=== PATIENT | female | born 1990 | race Caucasian/White ===

== ENCOUNTER → 2021-11-11 | Outpatient (CLI) | payer BC ==
--- NOTE | 2021-11-11 09:57 | US ---
EXAMINATION TYPE: US liver DATE OF EXAM: 11/11/2021 COMPARISON: NONE CLINICAL HISTORY: 31-year-old female R74.01 Elevation liver transaminase levels. Elevated liver enzym es TECHNIQUE: Multiple sonographic images of the right upper quadrant are obtained. FINDINGS: EXAM MEASUREMENTS: Liver Length: 12.9 cm Gallbladder Wall: 0.3 cm CBD: 0.3 cm Right Kidney: 10.8 x 4.2 x 4.1 cm Pancreas: No gross abnormality. Liver: Homogeneous appearance without focal lesion. Gallbladder: Nonshadowing echogenic nodule measuring 3 mm along the posterior wall, possible tiny st one versus gallbladder wall polyp. Reassess in 6 months. No abnormal distention, wall thickening, or pericholecystic fluid. Evidence for sonographic Costa's sign: no CBD: wnl Right Kidney: no evidence of hydronephrosis IMPRESSION: 1. Normal homogeneous ultrasound appearance to the liver. 2. Either a small 3 mm nonshadowing gallstone versus a gallbladder wall polyp. [facility]up [facility] to reassess. 3. No biliary ductal dilatation.
== END | disposition home or self-care (01) ==
LOC: RADUSWWP 07:40
PROVIDERS: ATTEND Internal Medicine
DX: R74.01 Elevation of levels of liver transaminase levels (principal)
CPT/HCPCS: 76705

== ENCOUNTER → 2021-11-18 | Outpatient (CLI) | payer BC ==
--- NOTE | 2021-11-18 11:00 | USB ---
Reason for exam: clinical finding. Indicated problem(s): lump or thickening in the left breast. Physical Findings: Nurse did not find any significant physical abnormalities on exam. US Breast LT Left complete breast ultrasound includes all four quadrants, the retroareolar region and axilla. Finding demonstrates a 0.2 x 0.2 x 0.1cm benign lesion too small to characterize at 4 o'clock and a 1.0 x 0.2 x 1.2cm midline sternum oval, hypoechoic area immediately deep to the skin at 10 o'clock, probable collapsed sebaceous cyst, dermatologic evaluation recommended. These results were verbally communicated with the patient and result sheet given to the patient on 11/18/21. ASSESSMENT: Benign, BI-RAD 2 RECOMMENDATION: Routine screening mammogram of both breasts at age 40. (unless clinical indication to start sooner) Manage patient on a clinical basis. Dermatologic consult.
== END | disposition home or self-care (01) ==
LOC: RADUSWWP 08:13
PROVIDERS: ATTEND Internal Medicine
DX: N63.22 Unspecified lump in the left breast, upper inner quadrant (principal)

== ENCOUNTER 2023-11-30 11:12 | Inpatient (IN) | payer BC ==
[2023-11-30 12:02] LABS: Appearance,Urine Clear (Clear); Bilirubin,Urine Negative (Negative); Blood,Urine Negative (Negative); Color,Urine Colorless; Glucose,Urine (UA) Negative (Negative); Ketones,Urine Negative (Negative); Leukocyte Esterase,Urine Negative (Negative); Nitrite,Urine Negative (Negative); PH, Urine 6.5 (5.0-8.0); Protein,Urine Negative (Negative); Specific Gravity,Urine 1.001 (1.001-1.035); Urobilinogen,Urine <2.0 mg/dL (<2.0)
[2023-11-30 12:12] LABS: Creatinine,Urine Random 5.9 mg/dL; Protein/Creatinine Ratio,Urine 2.203
[2023-11-30] MEDS ORDERED: LABETALOL 100 MG TAB PO STA (12:47)
[2023-11-30] MEDS ORDERED: LABETALOL 200 MG TAB PO PRN (13:05)
[2023-11-30] MEDS ORDERED: ACETAMINOPHEN TAB 500 MG TAB PO PRN (13:06)
[2023-11-30 14:44] LABS: Basophils % (A) 0 %; Eosinophils % (A) 0 %; HCT 38.5 % (34.0-46.0); Lymphocytes # (A) 1.5 k/uL (1.0-4.8); Lymphocytes % (A) 15 %; MCH 31.3 pg (25.0-35.0); MCHC 33.7 g/dL (31.0-37.0); MCV 93.1 fL (80.0-100.0); Monocytes # (A) 0.3 k/uL (0-1.0); Monocytes % (A) 3 %; Neutrophils # (A) 8.4 k/uL (1.3-7.7); Neutrophils % (A) 81 %; Platelet Count 230 k/uL (150-450); RBC 4.13 m/uL (3.80-5.40); RDW 13.7 % (11.5-15.5); WBC 10.3 k/uL (3.8-10.6)
[2023-11-30 14:52] LABS: ALT 14 U/L (4-34); AST 18 U/L (14-36); African American GFR (CKD) >90 (>60 ml/min/1.73 sqM); Blood Urea Nitrogen 8 mg/dL (7-17); LDH 166 U/L (120-246); Non-African American GFR(CKD) >90 (>60 ml/min/1.73 sqM); Uric Acid 3.9 mg/dL (3.7-7.4)
[2023-11-30 19:33] LABS: Glucose,Whole Blood 90 mg/dL (70-110)
[2023-11-30] MEDS: LABETALOL 200 MG TAB PO SCH (19:45)
[2023-12-01] MEDS ORDERED: LABETALOL 100 MG TAB PO PRN (04:21)
[2023-12-01 05:48] LABS: Glucose,Whole Blood 88 mg/dL (70-110)
[2023-12-01 08:05] LABS: Basophils % (A) 0 %; Eosinophils # (A) 0.1 k/uL (0-0.7); Eosinophils % (A) 1 %; HCT 37.9 % (34.0-46.0); HGB 12.5 gm/dL (11.4-16.0); Lymphocytes # (A) 1.4 k/uL (1.0-4.8); Lymphocytes % (A) 15 %; MCH 30.8 pg (25.0-35.0); MCV 93.2 fL (80.0-100.0); Mean Platelet Volume 8.1; Monocytes # (A) 0.4 k/uL (0-1.0); Monocytes % (A) 5 %; Neutrophils # (A) 6.8 k/uL (1.3-7.7); Neutrophils % (A) 77 %; Platelet Count 197 k/uL (150-450); RBC 4.07 m/uL (3.80-5.40); WBC 8.7 k/uL (3.8-10.6)
[2023-12-01 08:18] LABS: ALT 12 U/L (4-34); AST 18 U/L (14-36); African American GFR (CKD) >90 (>60 ml/min/1.73 sqM); Blood Urea Nitrogen 11 mg/dL (7-17); LDH 147 U/L (120-246); Non-African American GFR(CKD) >90 (>60 ml/min/1.73 sqM); Uric Acid 4.7 mg/dL (3.7-7.4)
[2023-12-01] MEDS: LABETALOL 200 MG TAB PO SCH ×2 (08:26→19:43)
--- NOTE | 2023-12-01 09:23 | P.HPOB ---
History of Present Illness H&P Date: 11/30/23 Chief Complaint: IUP at 35 weeks, chronic hypertension 33-year-old G2, P1 at 35 weeks that was seen in the office today for routine visit with noted elevated blood pressures. Repeat blood pressure remained elevated therefore patient was sent to OB triage for preeclampsia workup. Blood pressures were improved and preeclampsia labs were negative. Protein creatinine ratio was elevated at 2.1. Patient denies any signs or symptoms of preeclampsia. Patient noted good movement denied contractions. Patient is OBV to repeat preeclampsia labs and 24-hour urine to correlate with protein creatinine ratio given no signs or symptoms of preeclampsia at 35 weeks. In addition patient does have a history of gestational diabetes, diet controlled (GDS >200) On blood work this patient is a blood type of O+, rubella status immune, hepatitis B surface antigen negative, RPR is nonreactive, HIV is negative, she did receive her Tdap on 10/25 Review of Systems Constitutional: Denies chills, Denies fatigue, Denies fever Ears, nose, mouth and throat: Denies headache Cardiovascular: Reports leg edema Respiratory: Denies dyspnea Gastrointestinal: Denies constipation, Denies diarrhea, Denies nausea, Denies vomiting Genitourinary: Reports Past Medical History Past Medical History: No Reported History History of Any Multi-Drug Resistant Organisms: None Reported Past Surgical History: No Surgical Hx Reported Past Anesthesia/Blood Transfusion Reactions: No Reported Reaction Past Psychological History: No Psychological Hx Reported Smoking Status: Never smoker Past Alcohol Use History: None Reported Past Drug Use History: None Reported - Past Family History Father Family Medical History: No Reported History Medications and Allergies Home Medications Medication Instructions Recorded Confirmed Type Aspirin 81 mg PO DAILY 12/28/22 11/30/23 History Labetalol [Trandate] 100 mg PO BID 12/28/22 11/30/23 History Vit No.179/Iron/Folic 1 tab PO DAILY 12/28/22 11/30/23 History [ Tablet] Allergies Allergy/AdvReac Type Severity Reaction Status Date / Time amoxicillin Allergy Rash/Hives Verified 11/30/23 11:41 Exam Osteopathic Statement: *. No significant issues noted on an osteopathic structural exam other than those noted in the History and Physical/Consult. Vital Signs Temp Pulse Resp BP Pulse Ox 11/30/23 19:52 97.7 F 101 H 16 163/78 98 11/30/23 16:00 98.1 F 83 18 136/65 98 11/30/23 11:40 97.5 F L 80 18 145/96 96 Intake and Output 11/30/23 11/30/23 11/30/23 06:59 14:59 22:59 Other: # Voids 2 Weight 113.398 kg Targeted physical exam is performed in the state in general is a well-nourished well-developed female in no acute distress, breathing is nonlabored, heart has a regular rate and rhythm, abdomen is gravid, cervical exam is deferred, heart tones are noted to be category 1 and she is not manuel Results Result Diagrams: 11/30/23 14:21 11/30/23 14:21 Abnormal Lab Results - Last 24 Hours (Table) 11/30/23 Range/Units 14:21 Neutrophils # 8.4 H (1.3-7.7) k/uL Assessment and Plan (1) 35 weeks gestation of Current Visit: Yes Status: Acute Code(s): Z3A.35 - 35 WEEKS GESTATION OF SNOMED Code(s): 90020888 (2) Essential hypertension Current Visit: Yes Status: Acute Code(s): I10 - ESSENTIAL (PRIMARY) HYPERTENSION SNOMED Code(s): 36822862 (3) GDM (gestational diabetes mellitus), class A1 Current Visit: No Status: Acute Code(s): O24.410 - GESTATIONAL DIABETES MELLITUS IN , DIET CONTROLLED SNOMED Code(s): 30471929 Plan: 33-year-old at 35 weeks of that presents with elevated blood pressure and elevated P/Cr ratio. Patient is observed overnight for serial blood pressures and 24-hour urine collection. Repeat preeclampsia will be done in addition given early gestational age at 35 weeks want correlation between PCR ratio and 24-hour urine before we proceed with delivery. Plan of care is discussed with patient and she states understanding, all questions are answered. (Patient does have a significant history of anxiety and whitecoat hypertension)
--- NOTE | 2023-12-01 09:30 | P.PN ---
Progress Note - Text Progress Note Date: 12/01/23 33-year-old G2, P1 at 35-1/7 weeks admitted yesterday afternoon for observation of blood pressures and 24-hour urine collection. Patient has a known history of chronic hypertension and gestational diabetes. Patient notes normal blood pressures at home but does on occasion have an elevated pressure in the office that returns to normal on recheck. Patient did well overnight she did receive her home meds and an additional 100 mg dose of oral labetalol around 4 AM for an elevated blood pressure. Patient denies any signs or symptoms of preeclampsia. Repeat pre eclampsia labs this morning were normal. We are awaiting 24-hour urine collection to be completed around 1130 this morning. NST category 1 this morning. VS 146/83 prior to am labetalol gen: No acute distress, resting comfortably in bed chest: Breathing is nonlabored Abdomen: Gravid ext: Trace lower extremity swelling is appreciated Assessment/Plan IUP at 35 and 1/7 weeks, chronic hypertension ( on labetalol ) rule out preeclampsia awaiting 24-hour urine collection to correlate with PC ratio Will discuss plan of care going forward pending 24-hour urine collection. Patient is counseled if 24-hour urine collection is elevated will plan on induction of labor secondary to preeclampsia. Initial 24-hour urine collection is reviewed upon beginning care, 158
[2023-12-01 10:15] LABS: Glucose,Whole Blood 95 mg/dL (70-110)
[2023-12-01 11:44] LABS: Total Volume 24 Hour,Urine 2425 mls (800-1800)
[2023-12-01 12:07] LABS: Total Protein 24 Hour,Urine 146 mg/24hr (42.0-225.0)
[2023-12-01] MEDS ORDERED: miSOPROStoL 200 MCG TAB PO PRN (12:24)
[2023-12-01] MEDS ORDERED: CARBOPROST TROMETHAMINE 250 MCG/ML 1 ML AMP IM PRN (12:24)
[2023-12-01] MEDS ORDERED: LIDOCAINE 0.5% (PF) 5 MG/ML (50 ML SDV) SQ PRN (12:24)
[2023-12-01] MEDS ORDERED: OXYTOCIN 10 UNIT/ML 1 ML VIAL IM PRN (12:24)
[2023-12-01] MEDS ORDERED: TRANEXAMIC 1,000 MG/100ML-NACL 1,000 MG in EMPTY BAG 1 BAG IV PRN (12:24)
[2023-12-01] MEDS ORDERED: METHYLERGONOVINE 0.2 MG/ML 1 ML AMP IM PRN (12:24)
[2023-12-01] MEDS ORDERED: TERBUTALINE 1 MG/ML VIAL SQ PRN (12:24)
[2023-12-01] MEDS: LACTATED RINGERS 1,000 ML IV SCH ×2 (13:13→21:03)
[2023-12-01] MEDS: OXYTOCIN 30 UNITS/500 ML NS 30 UNIT in SALINE 1 500ML.BAG IV SCH (13:13)
[2023-12-01] MEDS ORDERED: DINOPROSTONE 10 MG INSERT.ER VAGINAL ONE (13:26)
[2023-12-01 13:43] LABS: Basophils % (A) 0 %; Eosinophils # (A) 0.1 k/uL (0-0.7); Eosinophils % (A) 1 %; HGB 12.8 gm/dL (11.4-16.0); Lymphocytes # (A) 1.4 k/uL (1.0-4.8); Lymphocytes % (A) 15 %; MCH 32.1 pg (25.0-35.0); MCHC 34.6 g/dL (31.0-37.0); MCV 92.6 fL (80.0-100.0); Mean Platelet Volume 7.9; Monocytes # (A) 0.4 k/uL (0-1.0); Monocytes % (A) 4 %; Neutrophils # (A) 7.5 k/uL (1.3-7.7); Neutrophils % (A) 80 %; Platelet Count 247 k/uL (150-450); RBC 3.99 m/uL (3.80-5.40); RDW 13.8 % (11.5-15.5); WBC 9.4 k/uL (3.8-10.6)
[2023-12-01 13:52] LABS: INR 0.8 (<1.2); Partial Thromboplastin Time 23.5 sec (22.0-30.0); Prothrombin Time 9.5 sec (10.0-12.5)
[2023-12-02] MEDS: LACTATED RINGERS 1,000 ML IV SCH (03:09)
[2023-12-02] MEDS: OXYTOCIN 30 UNITS/500 ML NS 30 UNIT in SALINE 1 500ML.BAG IV SCH (03:20)
[2023-12-02] MEDS: LABETALOL 200 MG TAB PO SCH ×2 (07:55→20:39)
[2023-12-02] MEDS ORDERED: fentaNYL (PF) 50 MCG/ML 5 ML AMP ONE (09:58)
[2023-12-02] MEDS ORDERED: ROPIVACAINE 5 MG/ML 30 ML VIAL ONE (09:58)
[2023-12-02] MEDS ORDERED: SODIUM CHLORIDE 0.9% 250 ML BAG ONE (09:58)
[2023-12-02] MEDS ORDERED: SIMETHICONE 80 MG CHEWABLE PO PRN (11:39)
[2023-12-02] MEDS ORDERED: HYDROCORTISONE 2.5% RECTAL CREAM 30 GM TUBE RECTAL PRN (11:39)
[2023-12-02] MEDS ORDERED: ACETAMINOPHEN TAB 325 MG TAB PO PRN (11:39)
[2023-12-02] MEDS ORDERED: diphenhydrAMINE 50 MG CAP PO PRN (11:39)
[2023-12-02] MEDS ORDERED: ZOLPIDEM 5 MG TAB PO PRN (11:39)
[2023-12-02] MEDS ORDERED: diphenhydrAMINE 50 MG/ML 1 ML VIAL IVP PRN ×2 (11:39)
[2023-12-02] MEDS ORDERED: diphenhydrAMINE 25 MG CAP PO PRN (11:39)
[2023-12-02] MEDS ORDERED: LANOLIN CREAM 5 GM TUBE TOPICAL PRN (11:39)
[2023-12-02] MEDS ORDERED: BENZOCAINE/MENTHOL SPRAY 1 GM/SPRAY AEROSOL TOPICAL PRN (11:39)
[2023-12-02] MEDS ORDERED: OXYTOCIN 30 UNITS/500 ML NS 30 UNIT in SALINE 1 500ML.BAG IV SCH (11:45)
[2023-12-02] MEDS ORDERED: CALCIUM GLUCONATE 1 GM/10 ML VIAL IV PRN (11:50)
--- NOTE | 2023-12-02 11:50 | P.PROBDLV ---
Vaginal Delivery Note - . Vaginal Delivery Note: 33-year-old G2, P1 that presented to the office for routine visit on 11/30 with elevated blood pressures. Initial blood pressure in the office 150/80 follow-up blood pressure 160/90. Patient was counseled to present to OB triage for labs and serial blood pressures. Blood pressures remained elevated with normal preeclampsia labs, protein creatinine ratio of the urine revealed an elevated result of 2.1. Patient was admitted overnight for observation and 24- hour urine collection to correlate with PC ratio. 24-hour urine did come back with 2 g of protein in the urine specimen. Patient was counseled on preeclampsia and need for induction of labor. Patient has had labile blood pressures throughout admission/labor 140's -160's/80-90's. Patient underwent Cervidil induction of labor last evening, contractions were noted through the night patient did not become uncomfortable. Pitocin augmentation of labor was begun this morning and amniotomy was performed. Patient quickly became uncomfortable and did request epidural placement by the anesthesia department. Patient noted relief of contractions but noted increasing vaginal pressure. On examination she was noted to be completely dilated. With excellent maternal effort patient quickly delivered a viable male infant at 1115, weight of 5 pounds 11 ounces. Spontaneous cry was noted at . After a 2-minute delay the umbilical cord was doubly clamped and cut and the placenta was delivered spontaneously intact with a three-vessel cord being noted. Uterus was noted to be firm and below the umbilicus at this time. On inspection of the patient's vaginal vault a first-degree vaginal laceration was appreciated and repaired in the usual fashion with 3-0 Rapide after instillation of lidocaine. Brady catheter was then placed as magnesium gtt. will be begun. Estimated blood loss 100 cc All counts were to be correct x 2. Patient and infant tolerated delivery well and are resting comfortably.
[2023-12-02] MEDS ORDERED: MAGNESIUM SULFATE-WATER PMX 4 GM in WATER FOR INJECTION 1 100ML.BAG IVPB ONE (12:00)
[2023-12-02] MEDS: MAGNESIUM SULFATE-WATER PMX 20 GM in WATER FOR INJECTION 1 500ML.BAG IV SCH ×2 (12:29→22:53)
[2023-12-02] MEDS: IBUPROFEN 600 MG TAB PO SCH ×2 (17:34→20:19)
[2023-12-02] MEDS: SENNOSIDES-DOCUSATE SODIUM 1 EACH TAB PO SCH (20:19)
[2023-12-03] MEDS: SENNOSIDES-DOCUSATE SODIUM 1 EACH TAB PO SCH (08:22)
[2023-12-03] MEDS: LABETALOL 200 MG TAB PO SCH ×2 (08:23→19:19)
[2023-12-03] MEDS: PRENATAL VIT-IRON-FOLIC ACID 1 EACH TABLET PO SCH (08:23)
[2023-12-03 08:42] LABS: HCT 34.6 % (34.0-46.0); HGB 11.5 gm/dL (11.4-16.0); MCHC 33.2 g/dL (31.0-37.0); MCV 93.2 fL (80.0-100.0); Mean Platelet Volume 7.9; Platelet Count 199 k/uL (150-450); RBC 3.71 m/uL (3.80-5.40); RDW 14.2 % (11.5-15.5); WBC 8.1 k/uL (3.8-10.6)
[2023-12-03] MEDS: MAGNESIUM SULFATE-WATER PMX 20 GM in WATER FOR INJECTION 1 500ML.BAG IV SCH (09:13)
[2023-12-03 09:30] LABS: Uric Acid 3.7 mg/dL (3.7-7.4)
[2023-12-03] MEDS: IBUPROFEN 600 MG TAB PO SCH ×2 (09:52→12:51)
--- NOTE | 2023-12-03 10:05 | P.PNOBGVD ---
Subjective - Subjective Principal diagnosis: day #1, preeclampsia severe features Interval history: Patient is doing well this morning. She is status post magnesium after delivery. Urine output has been good as the Brady continues to drain clear yellow urine. She denies signs or symptoms of preeclampsia. Blood pressures have been normal through the night. Lochia is minimal Patient reports: Reports pain well controlled [place]: doing well (in SCN) Objective - Latest Vital Signs Latest vital signs: Vital Signs Temp Pulse Resp BP Pulse Ox 12/03/23 09:00 120/59 99 12/03/23 08:00 98.2 F 86 16 148/79 98 12/03/23 07:00 81 16 128/72 98 12/03/23 06:31 15 12/03/23 06:00 77 104/56 12/03/23 05:00 80 15 105/56 12/03/23 04:00 97.9 F 83 16 111/63 99 12/03/23 03:00 71 16 96/54 12/03/23 02:00 80 15 110/67 100 12/03/23 01:00 15 103/58 97 12/03/23 00:00 83 16 113/66 99 12/02/23 23:00 82 15 113/59 97 12/02/23 22:00 82 16 137/72 98 12/02/23 21:00 93 15 132/74 99 12/02/23 20:00 97.9 F 83 16 129/80 98 12/02/23 18:58 95 17 136/77 98 12/02/23 18:00 96.9 F L 91 16 123/62 98 12/02/23 17:00 94 16 119/58 98 12/02/23 15:55 95 16 145/75 100 12/02/23 14:55 97.0 F L 89 17 159/82 99 12/02/23 13:30 98.2 F 71 16 133/68 12/02/23 13:15 70 16 128/65 12/02/23 13:00 80 16 128/66 12/02/23 12:45 95.4 F L 60 16 122/61 100 12/02/23 12:30 64 16 127/62 12/02/23 12:15 71 16 129/66 12/02/23 12:00 61 16 126/69 100 01/27/24 11:45 62 16 126/63 99 12/02/23 11:30 98.3 F 71 17 130/62 99 Intake and Output 12/02/23 12/03/23 12/03/23 22:59 06:59 14:59 Intake Total 1920 530 900 Output Total 2350 2400 400 Balance -430 -1870 500 Intake: Intake, IV Titration 1440 50 600 Amount Lactated Ringers 1,000 ml 200 100 @ 125 mls/hr IV .Q8H CHRISTOPHER Rx#:[id number] Magnesium Sulfate-Water 850 500 Pmx 20 gm In Water For Injection 1 500ml.bag @ 2 GM/HR 50 mls/hr IV .Q10H CHRISTOPHER Rx#:[id number] Oxytocin 30 Units/500 ml 390 50 Ns 30 unit In Saline 1 500ml.bag @ Per Protocol IV .Q0M CHRISTOPHER Rx#:[id number] Oral 480 480 300 Output: Urine 2350 2400 400 - Labs Labs: Abnormal Lab Results - Last 24 Hours (Table) 12/03/23 Range/Units 08:13 RBC 3.71 L (3.80-5.40) m/uL Assessment and Plan (1) 35 weeks gestation of Current Visit: Yes Status: Acute Code(s): Z3A.35 - 35 WEEKS GESTATION OF SNOMED Code(s): 62963656 (2) Essential hypertension Current Visit: Yes Status: Acute Code(s): I10 - ESSENTIAL (PRIMARY) HYPERTENSION SNOMED Code(s): 74475673 (3) GDM (gestational diabetes mellitus), class A1 Current Visit: No Status: Acute Code(s): O24.410 - GESTATIONAL DIABETES MELLITUS IN , DIET CONTROLLED SNOMED Code(s): 60845838 (4) Obstetrical laceration Current Visit: Yes Status: Acute Code(s): O71.9 - OBSTETRIC TRAUMA, UNSPECIFIED SNOMED Code(s): 333203434 (5) Pre-eclampsia Current Visit: Yes Status: Acute Code(s): O14.90 - UNSPECIFIED PRE- ECLAMPSIA, UNSPECIFIED TRIMESTER SNOMED Code(s): 749808954 (6) Status post normal vaginal delivery Current Visit: No Status: Acute Code(s): MUT7531 - SNOMED Code(s): 087382660 Plan: Plan to discontinue magnesium gtt. this morning, DC Brady catheter. Will continue close monitoring of blood pressures and treat with oral labetalol as needed.
[2023-12-04] MEDS: IBUPROFEN 600 MG TAB PO SCH (00:36)
[2023-12-04] MEDS ORDERED: LABETALOL 200 MG TAB PO STA (04:06)
[2023-12-04 08:13] VITALS: RESP 17; TEMP 97.9
[2023-12-04] MEDS: PRENATAL VIT-IRON-FOLIC ACID 1 EACH TABLET PO SCH (08:39)
[2023-12-04] MEDS: SENNOSIDES-DOCUSATE SODIUM 1 EACH TAB PO SCH (08:40)
[2023-12-04] MEDS ORDERED: LABETALOL 100 MG TAB PO PRN (09:09)
[2023-12-04 12:56] VITALS: PULSE 72
--- NOTE | 2023-12-04 13:27 | P.DS ---
Providers Date of admission: 11/30/23 13:04 Expected date of discharge: 12/04/23 Attending physician: Radha Martinez Primary care physician: Stated None - Discharge Diagnosis(es) (1) 35 weeks gestation of Current Visit: Yes Status: Acute (2) Essential hypertension Current Visit: Yes Status: Acute (3) GDM (gestational diabetes mellitus), class A1 Current Visit: No Status: Acute (4) Obstetrical laceration Current Visit: Yes Status: Acute (5) Pre-eclampsia Current Visit: Yes Status: Acute (6) Status post normal vaginal delivery Current Visit: No Status: Acute Hospital Course: This is a 33-year-old G2 now P2 that presented to labor and delivery on 11/30 with noted elevated blood pressures in the office. Patient had initial blood pressure of 150/80 with a follow-up blood pressure 160/90. Patient has known essential hypertension has been taking labetalol throughout the . Patient was counseled to present to OB triage for preeclampsia labs and serial blood pressures. Blood pressures remain elevated labs came back normal, protein creatinine ratio was elevated with a result of 2.1. Patient was admitted overnight for observation and 24-hour urine collection to correlate with her PC ratio. 24-hour urine collection returned with 2 g of protein. Patient was counseled on preeclampsia given blood pressures in protein in her urine and induction of labor was discussed. Patient had labile blood pressures through admission/labor 140s to 160s over 80s to 90s. Cervidil was placed without difficulty and patient was noted to be 2 cm at the beginning of the induction. Patient contracted through the night but did not note any pain with her contractions. Patient underwent amniotomy in the morning and clear fluid was obtained. Patient had Pitocin for augmentation of labor. Patient removed quickly through labor and requested epidural. Epidural was placed without difficulty by the anesthesia department. Patient noted increasing vaginal pressure and was noted to be completely dilated. Patient had a normal spontaneous vaginal delivery of a viable male infant at 1115, weight of 5 pounds 11 ounces. Spontaneous cry was noted at . A first-degree vaginal laceration was repaired after delivery. Patient did undergo 24 hours of magnesium GTT secondary to preeclampsia. Patient's blood work remained normal. Patient's blood pressures have been 130s to 160s over 80s to 90s. Patient continues to deny symptoms of preeclampsia. Patient states she feels well. Patient would like discharge home. 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 Patient will continue with current labetalol dose and monitor blood pressures at home. Patient does have a significant history of anxiety and I do believe her blood pressures have been elevated at times on the floor secondary to this anxiety. Patient has struggled with sleep in addition since admission. Patient does feel that this is contributing to her anxiety thus her elevated blood pressures. Patient was taking her blood pressures through the morning early afternoon on her blood pressure cuff on her own and those blood pressures remain normal. Patient Condition at Discharge: Good Plan - Discharge Summary New Discharge Prescriptions: No Action Labetalol [Trandate] 100 mg PO BID Vit No.179/Iron/Folic [ Tablet] 1 tab PO DAILY Aspirin 81 mg PO DAILY Discharge Medication List Aspirin 81 mg PO DAILY 12/28/22 [History] Labetalol [Trandate] 100 mg PO BID 12/28/22 [History] Vit No.179/Iron/Folic [ Tablet] 1 tab PO DAILY 12/28/22 [History] Follow up Appointment(s)/Referral(s): Radha Martinez DO [Doctor of Osteopathic Medicine] - 1 Week Patient Instructions/Handouts: Vaginal Delivery (DC), Vaginal Delivery (GEN) Activity/Diet/Wound Care/Special Instructions: No tub baths or intercourse until 6 weeks post . Patient is to call the office to make a blood pressure check appointment for 1 week. Patient is to call the office should she have any elevations of blood pressures greater than 160s over 90s. Patient is counseled on preeclampsia signs or symptoms. Patient is well educated on preeclampsia and concerns. Patient states she will call or follow-up as needed if blood pressures begin rising at home. Discharge Disposition: HOME SELF-CARE
[2023-12-04 14:48] VITALS: BP 119/79
[2023-12-04] MEDS: LABETALOL 200 MG TAB PO SCH (16:29)
== END 2023-12-04 16:35 | disposition home or self-care (01) | DRG 807 ==
LOC: FBPOP 11:12 → 4FBP 13:01 → OBSVTOIN 13:04
PROVIDERS: ADMIT Obstetrics & Gynecology Obstetrics; ATTEND Obstetrics & Gynecology Obstetrics
PROC: 10E0XZZ Delivery of Products of Conception, External Approach (ICD-10-PCS; principal; 2023-12-02)
PROC: 0HQ9XZZ Repair Perineum Skin, External Approach (ICD-10-PCS; 2023-12-02)
PROC: 10907ZC Drainage of Amniotic Fluid, Therapeutic from Products of Conception, Via Natural or Artificial Opening (ICD-10-PCS; 2023-12-02)
PROC: 3E0P7VZ Introduction of Hormone into Female Reproductive, Via Natural or Artificial Opening (ICD-10-PCS; 2023-12-02)
PROC: 3E033VJ Introduction of Other Hormone into Peripheral Vein, Percutaneous Approach (ICD-10-PCS; 2023-12-02)
DX: O14.14 Severe pre-eclampsia complicating childbirth (principal); Z37.0 Single live birth; O13.3 Gestational [pregnancy-induced] hypertension without significant proteinuria, third trimester; F41.9 Anxiety disorder, unspecified; O24.420 Gestational diabetes mellitus in childbirth, diet controlled; O70.0 First degree perineal laceration during delivery; O99.344 Other mental disorders complicating childbirth; Z3A.35 35 weeks gestation of pregnancy; Z79.82 Long term (current) use of aspirin; Z88.1 Allergy status to other antibiotic agents
CPT/HCPCS: 59025; 81003; 81050; 82565; 82570; 83615; 84156; 84450; 84460; 84520; 84550; 85025; 85027; 85384; 85610; 85730; 86850; 86900; 86901; 99215